=== PATIENT | female | born 1960 | race Hispanic/Latino ===

== ENCOUNTER 2022-01-06 06:40 | Day surgery (SDC) | payer OTHER, MEDICARE ==
[2022-01-03 12:21] LABS: BASOPHILS % (AUTO) 0.5 % (0.0-5.0); EOSINOPHILS % (AUTO) 0.8 % (0.0-8.0); HEMATOCRIT 40.5 % (36-48); MEAN CORPUSCULAR HGB CONC 33.3 g/dL (32.0-36.0); MONOCYTES % (AUTO) 5.2 % (3.0-13.0); PLATELET COUNT (AUTO) 202 K/uL (130-400); RED CELL DISTRIBUTION WIDTH 13.4 % (11.0-15.5); WHITE BLOOD COUNT (AUTO) 6.4 K/uL (4.8-10.8)
[2022-01-03 12:23] LABS: APPEARANCE,URINE Clear (CLEAR); BILIRUBIN,URINE Negative (NEGATIVE); COLOR,URINE Yellow (YELLOW); GLUCOSE, URINE (UA) Negative (NEGATIVE); KETONES,URINE Negative (NEGATIVE); LEUKOCYTE ESTERASE ,URINE Negative (NEGATIVE); NITRATE,URINE Negative (NEGATIVE); OCCULT BLOOD,URINE Negative (NEGATIVE); PH,URINE 6.5 (5.0-8.0); PROTEIN,URINE Negative (NEGATIVE); UROBILINOGEN,URINE 0.2 mg/dL (0.2-1.0)
[2022-01-03 12:34] LABS: CREATININE 0.7 mg/dL (0.5-1.5); POTASSIUM 4.4 mmol/L (3.5-5.1)
[2022-01-05 10:48] VITALS: BP 147/76
[2022-01-06] VITALS (16 sets, daily range): BP systolic 144–182; BP diastolic 75–94
[~2022-01-06] VITALS: Ht 167.6 cm; Wt 117.0 kg
[2022-01-06] MEDS: CEFTRIAXONE 1G VIAL IVP SCH ×2 (06:00→08:40)
[~2022-01-06 06:40] MED LIST: BOTULINUM TOXIN TYPE A 100 UNITS/VIAL INJ SCH; COMBIVENT IH; FURO20TA4 PO; HYDR-4068 PO; LISI10TA24 PO; LORA10TA7 PO
[2022-01-06] MEDS ORDERED: 0.9%NACL 1000ML 1,000 ML IV ONE (07:15)
[2022-01-06] MEDS ORDERED: ACET-2079 PO (07:46)
[2022-01-06] MEDS ORDERED: ATOR10 PO (07:46)
[2022-01-06] MEDS ORDERED: FLUT1BLS3 IH (07:46)
[2022-01-06] MEDS ORDERED: OXYB10TA30 PO (07:46)
[2022-01-06] MEDS ORDERED: METF-444 PO (07:46)
[2022-01-06] MEDS ORDERED: HYDR12.54 PO (07:46)
[2022-01-06] MEDS ORDERED: LACTULOSE PO (07:46)
[2022-01-06] MEDS ORDERED: CHOL100046 PO (07:46)
[2022-01-06] MEDS ORDERED: SUCCINYLCHOLINE 200MG/10ML SYR ONE ×2 (08:45→08:47)
[2022-01-06] MEDS ORDERED: LIDOCAINE PF 100MG/5ML (2%) SYRINGE 5ML ONE ×2 (08:45→08:47)
[2022-01-06] MEDS ORDERED: DEXAMETHASONE SOD PHOSPHATE 10MG/ML 1ML VIAL ONE (08:45)
[2022-01-06] MEDS ORDERED: NEOSTIGMINE 5MG/5ML SYR IV ONE (08:46)
[2022-01-06] MEDS ORDERED: ROCURONIUM 10MG/1ML SYR 10 MG/ML ML ONE (08:46)
[2022-01-06] MEDS ORDERED: GLYCOPYRROLATE 1 MG/5 ML SYRINGE ONE (08:46)
[2022-01-06] MEDS ORDERED: PROPOFOL 10 MG/ML 20ML VIAL IV ONE (08:46)
[2022-01-06] MEDS ORDERED: ONDANSETRON 4MG INJ ONE (08:46)
[2022-01-06] MEDS ORDERED: FENTANYL CITRATE PF 50 MCG/1 ML 2ML VIAL ONE (08:46)
[2022-01-06] MEDS ORDERED: MEPERIDINE-PF 25 MG/ML SYG ONE (09:47)
[2022-01-06] MEDS ORDERED: LABETALOL 20MG VIAL IV ONE (09:57)
== END 2022-01-06 10:45 | disposition home or self-care (01) ==
LOC: DAH 06:40
PROVIDERS: ATTEND Urology
DX: N39.46 Mixed incontinence (principal); E66.01 Morbid (severe) obesity due to excess calories; I10 Essential (primary) hypertension; E11.9 Type 2 diabetes mellitus without complications; K21.9 Gastro-esophageal reflux disease without esophagitis; J44.9 Chronic obstructive pulmonary disease, unspecified; Z79.899 Other long term (current) drug therapy
CPT/HCPCS: 36415; 52287; 71045; 80048; 81003; 82948 ×2; 85025; 87088; 87635; 93005; A4215 ×2; A4221; A4222; A4223; A4358; A4520; A4600; A4615; A4663; A6260; C1769; C9803; J0330 ×2; J0585; J0696; J1100; J2001 ×2; J2175; J2405; J2704; J2710; J3010; J3490 ×2; J7030; J7120